=== PATIENT | male | born 1945 | race Caucasian/White ===

== ENCOUNTER 2017-03-20 14:55 | Emergency (ER) | payer OTHER ==
[2017-03-20 15:20] VITALS: BMI 24.7
--- NOTE | 2017-03-20 15:37 | PDOC ---
History of Present Illness - General History Source: Patient, Family - History of Present Illness Timing/Duration: 1 hour Associated Symptoms: reports: syncope, weakness. denies: chest pain, cough, diaphoresis, fever/chills, headaches, nausea/vomiting, seizure, shortness of breath <LandisvilleBarbaraOmidFely - Last Filed: 03/20/17 17:11> <Yeimy Bueno - Last Filed: 03/22/17 08:33> - General Chief Complaint: Syncope/Near Syncope Stated Complaint: SYNCOPE Time Seen by Provider: 03/20/17 15:25 Past History - Past Medical History Anemia: No Asthma: No Cancer: No Cardiac Disorders: No CVA: No COPD: No DVT: No Dementia: No Diabetes: No Dialysis: No GI Disorders: No Disorders: Yes (ca. prostate) HTN: No Hypercholesterolemia: No HIV: No Kidney Stones: No Liver Disease: No Psychiatric Problems: No Seizures: No Thyroid Disease: No Lung CA: No - Surgical History Abdominal Surgery: No Appendectomy: No Cardiac Surgery: No Cholecystectomy: No Gastric Stapling: No GI Surgery: No Lung Surgery: No Neurologic Surgery: No - Psycho/Social/Smoking Cessation Hx Suicidal Ideation: No Smoking History: Never smoked Have you smoked in the past 12 months: No Information on smoking cessation initiated: No Hx Alcohol Use: No Drug/Substance Use Hx: No <Barbara ReedNelsy Last Filed: 03/20/17 17:11> <Yeimy Bueno - Last Filed: 03/22/17 08:33> - Past Medical History Allergies/Adverse Reactions: Allergies Allergy/AdvReac Type Severity Reaction Status Date / Time lactose Allergy Verified 03/20/17 15:23 Home Medications: Ambulatory Orders Alfuzosin HCl [Uroxatral] 0.4 mg PO DAILY 03/20/17 Review of Systems - Review of Systems Constitutional: No: Chills, Fever Respiratory: No: Cough, Shortness of Breath Cardiac (ROS): Yes: Lightheadedness, Syncope. No: Chest Pain, Palpitations ABD/GI: No: Nausea, Vomiting Neurological: Yes: Dizziness. No: Headache <Herberth Reed Last Filed: 03/20/17 17:11> *Physical Exam - Vital Signs Last Vital Signs Temp Pulse Resp BP Pulse Ox 98.0 F 76 18 115/70 100 03/20/17 15:15 03/20/17 15:15 03/20/17 15:15 03/20/17 15:15 03/20/17 15:15 - Physical Exam General Appearance: Yes: Appropriately Dressed. No: Apparent Distress HEENT: positive: Normal Voice Neck: positive: Supple Respiratory/Chest: positive: Lungs Clear, Normal Breath Sounds. negative: Respiratory Distress Cardiovascular: positive: Regular Rate, S1, S2 Gastrointestinal/Abdominal: positive: Soft. negative: Tender Extremity: positive: Normal Inspection. negative: Pedal Edema Integumentary: positive: Dry, Warm Neurologic: positive: Fully Oriented, Alert, Normal Mood/Affect, Motor Strength 5/5, Finger to Nose. negative: Facial Droop, Disoriented <Herberth Reed - Last Filed: 03/20/17 17:11> - Vital Signs Last Vital Signs Temp Pulse Resp BP Pulse Ox 98.0 F 76 16 149/70 98 03/20/17 17:28 03/20/17 17:28 03/20/17 17:28 03/20/17 17:28 03/20/17 17:28 <Yeimy Bueno - Last Filed: 03/22/17 08:33> Heart Score/ECG Review - ECG Intrepretation Comment:: 03/20/17 16:20 Twelve-lead EKG was performed and reviewed by me. There is normal sinus rhythm with a normal rate. The axis is normal. The intervals are normal. There are no ST or T wave abnormalities. Impression: Normal twelve-lead EKG <Herberth Reed - Last Filed: 03/20/17 17:11> ED Treatment Course - LABORATORY CBC & Chemistry Diagram: 03/20/17 15:41 03/20/17 15:41 - RADIOLOGY Radiology Studies Ordered: Category Date Time Status CHEST X-RAY PORTABLE* [RAD] Stat Radiology 03/20/17 15:26 Ordered <Herberth Reed - Last Filed: 03/20/17 17:11> - LABORATORY CBC & Chemistry Diagram: 03/20/17 15:41 03/20/17 15:41 - ADDITIONAL ORDERS Additional order review: 03/20/17 03/20/17 15:41 15:08 RBC 4.85 MCV 90.3 MCHC 34.9 RDW 12.5 MPV 7.1 L Neutrophils % 74.0 Lymphocytes % 14.2 Monocytes % 7.8 Eosinophils % 3.2 Basophils % 0.8 POC Glucometer [phone] <Yeimy Bueno - Last Filed: 03/22/17 08:33> Medical Decision Making - Medical Decision Making 03/20/17 15:31 71 -year-old male, no significant history, except states that his blood pressure tends to run on the low side (120s/60s-70s), here with syncope in the setting of hypotension. While at a bar formerly [facility] approximately 1 hour ago, patient became dizzy while sitting down and states the next thing he remembers are bystanders standing over him and calling 911. Family at bedside and states she was sitting next to patient and all of a sudden saw patient slump forward, but never hit his head. Patient states blood pressure at scene was 90/60 and was improving enroute with IV fluid. BP now 115/70 in ED. Pt states he feels better now but reports feeling slightly weak. Denies chest pain, shortness of breath, diaphoresis, n/v, vertigo, headache, slurred speech, visual changes, focal weakness. No history of similar episode. Follows up with PMD in [place]. No known CAD and no cardiac w/u in past per pt See exam Syncope in setting of significant hypotension (90/60 per EMT) Improved now and stable w/ BP 115/70 in ED No CP or SOB No cardiac hx and no w/u in past No focal deficits R/o ACS, less likely dissection, PE or CVA -ekg -cxr -labs -will need tele admission (pmd in [place], no cards) 03/20/17 15:35 03/20/17 15:38 03/20/17 16:31 03/20/17 16:49 EKG unremarkable with normal troponin. Creatinine 1.5, which is not new for patient as per . BNP greater than 2K, with no evidence of significant congestion on chest x-ray and no edema. Labs results were discussed w/ patient and family, and I explained to them that patient will need to be admitted for further workup for syncope and hypotension. Family adamant that they do not want to be admitted to [facility]. Reports that patient's PMD, Dr. Finn ([phone]) is located at [facility] and prefer for patient to be admitted there. called Brigid and left message for him to call me back. I also called Dr. Finn and left a message. Will wait for call back to discuss disposition. 03/20/17 16:[address] Finn who initially stated he would call transfer center and facilitate transferring patient to [facility], but after Brigid spoke to patient's , a decision was made by patient, family and PMD for patient to sign out AGAINST MEDICAL ADVICE despite being informed of all the risks, such as IA and and see Dr. Finn first thing in the morning. Pt appears to have capacity and verbalized understanding. <Herberth Reed - Last Filed: 03/20/17 17:11> *DC/Admit/Observation/Transfer <Herberth Reed - Last Filed: 03/20/17 17:11> - Attestations Physician Attestion: I reviewed the case with the mid-level practitioner and agree with the mid- level practitioner's assessment, diagnosis and disposition. <Yeimy Bueno - Last Filed: 03/22/17 08:33> Diagnosis at time of Disposition: Syncope Qualifiers: Syncope type: unspecified Qualified Code(s): R55 - Syncope and collapse Hypotension Qualifiers: Hypotension type: unspecified hypotension type Qualified Code(s): I95.9 - Hypotension, unspecified - Discharge Dispostion Disposition: AGAINST MEDICAL ADVICE Condition at time of disposition: Fair - Referrals Referrals: STAFF,NOT ON [Primary Care Provider] - - Patient Instructions Printed Discharge Instructions: DI for Syncope in Adults (Fainting) Additional Instructions: You have decided to sign out AMA after presenting to the emergency department with syncope in the setting of hypotension. You were informed of risks such as heart attack and even . Your primary doctor was called and made aware of your disposition and would like to see you first thing in the morning. Please note that you can return to ED at any time for further evaluation and admission
[2017-03-20 16:03] LABS: BASOPHIL 0.8 % (0-2.0); EOSINOPHIL 3.2 % (0-4.5); MCH 31.5 pg (25.7-33.7); MCHC 34.9 g/dl (32.0-35.9); MEAN CELL VOLUME 90.3 fl (80-96); MEAN PLT VOLUME 7.1 fl (7.5-11.1); PLATELET COUNT 151 K/MM3 (134-434); RDW 12.5 % (11.9-15.9); WHITE BLOOD COUNT 8.6 K/mm3 (4.0-10.0)
[2017-03-20 16:32] LABS: ALBUMIN 3.7 g/dl (3.4-5.0); ANION GAP 7 (8-16); BILIRUBIN,TOTAL 0.8 mg/dL (0.2-1.0); CALCIUM 9.3 mg/dL (8.5-10.1); CO2 30 mmol/L (21-32); CREATININE 1.5 mg/dL (0.7-1.3); GLUCOSE,RANDOM 118 mg/dL (74-106); SGOT/AST 16 U/L (15-37); SGPT/ALT 26 U/L (12-78); TOT PROT 6.3 g/dl (6.4-8.2)
[2017-03-20 16:34] LABS: ALK PHOS 59 U/L (45-117); CPK 115 IU/L (39-308); TROPONIN I < 0.02 ng/ml (0.00-0.05)
[2017-03-20 17:25] LABS: URINE APPEARANCE CLOUDY; URINE BILIRUBIN NEGATIVE (NEGATIVE); URINE BLOOD 1+ (NEGATIVE); URINE COLOR YELLOW; URINE GLUCOSE (UA) NEGATIVE (NEGATIVE); URINE KETONE NEGATIVE (NEGATIVE); URINE NITRITE POSITIVE (NEGATIVE); URINE PROTEIN NEGATIVE (NEGATIVE); URINE UROBILINOGEN NEGATIVE mg/dL (0.2-1.0)
[2017-03-20 17:28] VITALS: BP 149/70; PULSE 76; TEMP 98
[2017-03-20 17:28] LABS: URINE LEUK ESTERASE 3+ (NEGATIVE)
[2017-03-20 17:31] LABS: URINE BACTERIA MANY /hpf (NONE SEEN); URINE HYALINE CAST 7 /lpf; URINE MUCUS RARE; URINE RBC 5 /hpf (0-3); URINE WBC 223 /hpf (3-5); YEAST FEW
--- NOTE | 2017-03-21 21:49 | EKG ---
Test Reason : Blood Pressure : / mmHG Vent. Rate : 077 BPM Atrial Rate : 077 BPM P-R Int : 232 ms QRS Dur : 082 ms QT Int : 348 ms P-R-T Axes : 073 006 058 degrees QTc Int : 393 ms SINUS RHYTHM WITH 1ST DEGREE A-V BLOCK CANNOT RULE OUT SEPTAL INFARCT , AGE UNDETERMINED ABNORMAL ECG NO PREVIOUS ECGS AVAILABLE Confirmed by MADISON RIVAS MD ([id number]) on 03/21/2017 9:48:38 PM Referred By: Confirmed By:MADISON RIVAS MD
== END 2017-03-20 17:31 | disposition left against medical advice (07) ==
LOC: JER 14:55
DX: I95.89 Other hypotension (principal); R55 Syncope and collapse; Z85.46 Personal history of malignant neoplasm of prostate
CPT/HCPCS: 36415; 71010-TC; 80053; 81003; 81015; 83880; 84484; 85025; 93005; 93010; 99285-25